=== PATIENT | female | born 1990 | race Caucasian/White ===

== ENCOUNTER 2017-12-27 06:22 | Day surgery (SDC) | payer OTHER ==
[~2017-12-27] VITALS: Ht 160 cm; Wt 80.6 kg
[2017-12-27] MEDS ORDERED: BUPIVACAINE/PF 0.5% ONE (06:33)
[2017-12-27] MEDS ORDERED: EPINEPHRINE 1 MG/ML, 1ML ONE (06:33)
[2017-12-27 07:20] VITALS: BP 135/82
[2017-12-27] MEDS ORDERED: LACTATED RINGERS 1,000 ML IV SCH (07:26)
[2017-12-27] MEDS ORDERED: CEFOTETAN 1 GM ONE (08:28)
[2017-12-27] MEDS ORDERED: ONDANSETRON 2MG/ML, 2ML ONE (08:28)
[2017-12-27] MEDS ORDERED: morphine SULFATE 10 MG/ML, 1ML IV PRN (08:30)
[2017-12-27] MEDS ORDERED: ONDANSETRON 2MG/ML, 2ML IVPush PRN (08:30)
[2017-12-27] MEDS ORDERED: ACETAMINOPHEN 325 MG TABLET PO PRN (08:30)
[2017-12-27] MEDS ORDERED: MEPERIDINE/PF 25MG/0.5ML IVPush PRN (08:30)
[2017-12-27] MEDS ORDERED: OXYcodone 5 MG/5 ML ORAL.SOL UDC PO PRN (08:30)
[2017-12-27] MEDS ORDERED: HYDROcodone/APAP 7.5-325MG/15ML UDC PO PRN (08:30)
[2017-12-27] MEDS ORDERED: PROPOFOL 10 MG/ML, 20ML ONE (08:35)
[2017-12-27] MEDS ORDERED: ROCURONIUM 10MG/ML,5ML ONE (08:35)
[2017-12-27] MEDS ORDERED: LIDOCAINE-MPF 2% ,5ML ONE (08:35)
[2017-12-27] MEDS ORDERED: DEXAMETHASONE 4 MG/ML, 1ML ONE ×2 (08:37)
[2017-12-27] MEDS ORDERED: FENTANYL PF 100 MCG/2ML ONE ×3 (08:40→10:52)
[2017-12-27] MEDS ORDERED: BUPIVACAINE/PF-EPI 0.5% 1:200K INFIL ONE (08:43)
[2017-12-27] MEDS ORDERED: THROMBIN 5,000 UNIT VIAL TP ONE (08:55)
[2017-12-27] MEDS ORDERED: FENTANYL PF 250 MCG/5ML ONE (09:36)
[2017-12-27] MEDS ORDERED: OMNIPAQUE 350 MG/ML, 50 ML BOTTLE ONE (09:54)
[2017-12-27] MEDS ORDERED: HYDROcodone/APAP 7.5-325MG/15ML UDC ONE (10:52)
[2017-12-27] MEDS: FENTANYL PF 100 MCG/2ML IV PRN ×2 (10:55→11:23)
== END 2017-12-27 15:15 ==
LOC: OUT 06:22
PROVIDERS: ATTEND Colon & Rectal Surgery
DX: K81.9 Cholecystitis, unspecified (principal); E66.9 Obesity, unspecified; Z98.890 Other specified postprocedural states
CPT/HCPCS: 47563; 74300; 81025; 88304; C1729; J0171; J1100; J2405; J2704; J3010; J3490; J7120; Q9967; S0074